=== PATIENT | male | born 1980 | race Caucasian/White ===

== ENCOUNTER 2020-05-25 11:22 | Outpatient (CLI) | payer OTHER, SELFPAY | END 2020-05-25 11:23 | disposition home or self-care (01) | LOC: ANHCOVIDVC 11:23 | PROVIDERS: PCP Registered Nurse | DX: Z23 Encounter for immunization (principal) | CPT/HCPCS: 0001A; 91300 ==

== ENCOUNTER 2020-06-15 11:28 | Outpatient (CLI) | payer OTHER, SELFPAY | END 2020-06-15 11:29 | disposition home or self-care (01) | LOC: ANHCOVIDVC 11:28 | PROVIDERS: PCP Registered Nurse | DX: Z23 Encounter for immunization (principal) | CPT/HCPCS: 0002A; 91300 ==